=== PATIENT | male | born 1995 | race Caucasian/White ===

== ENCOUNTER 2016-11-21 15:41 | Emergency (ER) | payer OTHER ==
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
== END 2016-11-21 17:57 | disposition disaster alternative care site (69) ==
LOC: GACC 15:41
DX: S05.12XA Contusion of eyeball and orbital tissues, left eye, initial encounter (principal); Y04.0XXA Assault by unarmed brawl or fight, initial encounter; Y92.29 Other specified public building as the place of occurrence of the external cause